=== PATIENT | female | born 2000 | race Caucasian/White ===

== ENCOUNTER 2024-06-25 08:39 | Emergency (ER) | payer OTHER, SELFPAY ==
[2024-06-25 08:51] VITALS: BP 149/94; PULSE 103; RESP 18; TEMP 36.2; O2SAT 100
--- NOTE | 2024-06-25 09:21 | ED.SKABFB ---
HPI - Skin/Abscess/Foreign Bdy General Chief complaint: Extremity Problem,Nontraumatic Stated complaint: Bite Left Hand Time Seen by Provider: 06/25/24 09:14 Source: patient and RN notes reviewed Mode of arrival: ambulatory Limitations: no limitations History of Present Illness HPI narrative: Patient presents today complaining of swelling and redness to the left 5th distal phalanx when she woke up this morning. Patient is concerned that she may have been bitten by a spider while she was sleeping. No [id number] treatment prior to arrival. States finger has improved somewhat prior to arrival Related Data Home Medications Medication Instructions Recorded Confirmed norethindrone 1 mg-ethinyl 1 tablet PO DAILY 06/25/24 06/25/24 estradiol 20 mcg (24)-iron 75 mg (4) tablet (Bria 24 Fe) Allergies Allergy/AdvReac Type Severity Reaction Status Date / Time No Known Allergies Allergy Verified 06/25/24 09:02 Review of Systems Review of Systems: CONSTITUTIONAL: Denies body aches, fever, chills, or sweats. EYES: Denies visual changes, redness, or discharge. ENT: Denies rhinorrhea, congestion, sore throat, or otalgia. CARDIOVASCULAR: Denies chest pain, palpitations, or edema. RESPIRATORY: Denies cough or dyspnea. GASTROINTESTINAL: Denies abdominal pain, nausea, vomiting, or diarrhea. GENITOURINARY: Denies dysuria or hematuria. SKIN: Denies rash, itching, or wounds. MUSCULOSKELETAL: Denies back pain. Finger swelling and redness NEUROLOGIC: Denies headache, numbness, tingling, or weakness. PSYCH: Denies depression or anxiety. PMFSH Comments At time of signature, I have reviewed and agree with nursing past medical, surgical, social and family history unless otherwise noted. Please see nursing chart for further information. There is no relevant family history pertinent to the presenting complaint Exam Narrative: GENERAL: Well-appearing, well-nourished, and in no acute distress. HEAD: Normocephalic, atraumatic. EYES: EOMI. No redness or drainage. Conjunctivae normal. ENT: Mucous membranes pink and moist. NECK: Normal AROM. CHEST: No respiratory distress. EXTREMITIES: Left 5th finger: Skin appears normal. No puncture wounds noted. Scant difference in size noted from left and right distal phalanx, but does not appear edematous. Full AROM. Fingernail appears normal. Distal sensation intact. Capillary refill normal. SKIN: Warm, dry, no rash. Capillary refill normal. Normal skin turgor. NEURO: No focal deficits. Alert and oriented x3. Gait steady. PSYCH: Normal affect. No signs of depression or anxiety. Course Course Level of Care: Express Care Visit Vital Signs Vital signs: Vital Signs Temperature 97.1 F L 06/25/24 08:51 Pulse Rate 103 H 06/25/24 08:51 Respiratory Rate 18 06/25/24 08:51 Blood Pressure 149/94 H 06/25/24 08:51 Pulse Oximetry 100 06/25/24 08:51 Oxygen Delivery Room Air 06/25/24 08:51 Temperature 97.1 F L 06/25/24 08:51 Pulse Rate 103 H 06/25/24 08:51 Respiratory Rate 18 06/25/24 08:51 Blood Pressure 149/94 H 06/25/24 08:51 Pulse Oximetry 100 06/25/24 08:51 Oxygen Delivery Room Air 06/25/24 08:51 Reviewed MDM - Skin/Abscess/Foreign Bdy MDM Narrative Medical decision making narrative: Exam appears grossly normal. There are no puncture wounds or stings to suggest insect involvement. Reassured patient's of exam findings. No treatment indicated at this time. Differential Diagnosis Differential diagnosis: Likely abscess of skin or subcutaneous tissue, cellulitis, insect bites and contact dermatitis Critical Care Time Critical Care Time Critical Care Time: No Discharge Plan Discharge Clinical Impression: Worried well Patient Disposition: Home, Self-Care Condition: Stable Additional Instructions: There does not seem to be any puncture wounds or redness in your finger currently. Please follow-up if symptoms worsen.
== END 2024-06-25 09:27 | disposition home or self-care (01) ==
PROVIDERS: Emergency Provider Nurse Practitioner
DX: Z71.1 Person with feared health complaint in whom no diagnosis is made (principal)
CPT/HCPCS: 99203; 99211; G0463

== ENCOUNTER 2025-03-01 13:13 | Emergency (ER) | payer OTHER, SELFPAY ==
[2025-03-01 13:24] VITALS: BP 123/86; PULSE 90; RESP 18; TEMP 36.6; O2SAT 99
--- NOTE | 2025-03-01 13:35 | ED_ITS ---
HPI - Wound/Laceration General Chief Complaint: Extremity Injury, Upper Stated Complaint: R INDEX FINGER INJURY Time Seen by Provider: 03/01/25 13:35 Source: patient and RN notes reviewed Mode of arrival: ambulatory Limitations: no limitations History of Present Illness HPI narrative: 24-year-old female presents with concern for laceration to the 2nd digit of her left hand. Reports she was doing dishes and a piece of broken glass cut her finger. She reports she wrapped it up right away because it was bleeding a lot. She is up-to-date on her tetanus vaccination. She denies decreased strength, sensation, range of motion in the digit. Related Data Home Medications ?Medication ?Instructions ?Recorded ?Confirmed ?Last Taken ?Type norethindrone 1 mg-ethinyl 1 tablet PO DAILY 06/25/24 06/25/24 Unknown History estradiol 20 mcg (24)-iron 75 mg (4) tablet (Bria 24 Fe) Allergies Allergy/AdvReac Type Severity Reaction Status Date / Time No Known Allergies Allergy Verified 03/01/25 13:30 Review of Systems Review of Systems: CONSTITUTIONAL: Denies malaise, chills, sweats, or fever. SKIN: Reports laceration to the lateral 2nd left digit MUSCULOSKELETAL: Denies muscle skeletal pain NEUROLOGIC: Denies numbness, weakness All systems reviewed & are unremarkable except as noted in HPI and below PMFSH Comments At time of signature, agree with nursing past medical, surgical, social and family history. There is no relevant family history pertinent to the presenting complaint Exam Narrative: GENERAL: Well-appearing, well-nourished, and in no acute distress. HEAD: Normocephalic EYES: PERRLA, conjunctivae clear NECK: Supple. CHEST: Speaks in full sentences. No respiratory distress. HEART: Regular rate and rhythm. Normal and equal peripheral pulses. EXTREMITIES: 2nd digit a left hand has normal strength and sensation. 5/5 stre ngth with digit flexion, extension. Range of motion normal. Normal digital cascade with flexion of fingers, median, ulnar and radial nerve intact. Normal sensation of each side of finger. Normal thumb opposition. Good capillary refill and radial pulse. Distal capillary refill less than 3 seconds. SKIN: Warn, dry, intact, pink. 1 cm linear superficial laceration the lateral 2nd digit left hand, wound is closed without active bleeding NEURO: Alert and oriented x3. PSYCH: Normal mood and affect Course Course Emergency Course: Patient is aware of diagnosis, understands and agrees to treatment plan. Anticipatory guidance given. Patient agrees to follow-up as directed and is aware of reasons to seek care at the emergency department. Portions of this record may have been created with voice recognition software Level of Care: Express Care Visit Vital Signs Vital signs: Vital Signs Temperature 97.8 F 03/01/25 13:24 Pulse Rate 90 03/01/25 13:24 Respiratory Rate 18 03/01/25 13:24 Blood Pressure 123/86 03/01/25 13:24 Pulse Oximetry 99 03/01/25 13:24 Temperature 97.8 F 03/01/25 13:24 Pulse Rate 90 03/01/25 13:24 Respiratory Rate 18 03/01/25 13:24 Blood Pressure 123/86 03/01/25 13:24 Pulse Oximetry 99 03/01/25 13:24 Reviewed. Procedures Laceration Laceration 1: Date: 03/01/25 Time: 13:41 Site: hand Side (If applicable): left Size (cm): 1 Description: linear Depth: simple, single layer ====== Skin Level ====== Skin layer closed with: steri strips ====== Subcutaneous Layer ====== ====== Muscle Layer ====== ====== Tendon Layer ====== MDM - Wound/Laceration MDM Narrative Medical decision making narrative: I evaluated this patient in the [facility]. History is obtained from patient who is an independent historian and physical exam was performed.? Available medical records were reviewed. ? Exam findings show no acute concerns or changes; patient is non-toxic appearing and is in no distress. ? Differential diagnosis and treatment plan were discussed with the patient. Patient agrees with discussion and after shared medical decision making agrees with plan of care. All questions were answered to the patient's satisfaction. Patient is appropriate for outpatient treatment and follow-up. Differential Diagnosis Differential diagnosis: Likely laceration, abrasion and avulsion of skin Critical Care Time Critical Care Time Critical Care Time: No Discharge Plan Discharge Clinical Impression: Laceration Patient Disposition: Home Condition: Stable Instructions: Laceration (ED) Additional Instructions: Keep wound clean, and dry. Cover with bandage as needed to prevent co ntamination. For the next 24-36 hours keep your wound bandaged and dry. After that you can gently clean with soap and water twice daily, but do not soak, take baths, or swim until wound is completely healed. Do not clean with hydrogen peroxide. If any signs of infection such as redness, swelling, increasing pain, drainage of purulent discharge, streaks up your extremity develop, seek medical attention immediately. Patient Language: Thai Prescriptions: No Action Bria 24 Fe 1 mg-20 mcg (24)/75 mg (4) tablet 1 tablet PO DAILY Follow-up/Referrals: Jorje,Scarlet [Other] Stand Alone Forms: Work/School Release IP Time of Disposition: 13:43
== END 2025-03-01 13:59 | disposition home or self-care (01) ==
PROVIDERS: Emergency Provider Nurse Practitioner
DX: S61.210A Laceration without foreign body of right index finger without damage to nail, initial encounter (principal); W25.XXXA Contact with sharp glass, initial encounter
CPT/HCPCS: 99212; G0463